=== PATIENT | male | born 1995 | race African-American/Black ===

== ENCOUNTER → 2017-02-04 | Outpatient (CLI) | payer BC ==
--- NOTE | ~2017-02-04 | CT92 ---
[facility] A Service [facility] RADIOLOGY TEXT RESULTS PATIENT: DOMINIC LOCO LOCATION: [facility] : [birth year] UNIT #: [id number] AGE: [address]: Daily Bedolla MD SEX: M ORDER DR: [id number] [address] [address] [id number] O MR#: [id number] Acc #: [id number] NAME: DOMINIC LOCO : 1995 SEX: M STUDY DATE/TIME: 02/04/2017 14:38 UNIT: [facility] ROOM: STUDY DESCRIPTION: CT Lower Ext Lt Wo Cont Attending Physician: Hortensia Bedolla M.D. Referring Physician: Hortensia Bedolla M.D. Ordering Physician: Hortensia Bedolla M.D. Primary Care Physician: No Primary Care Physician MEDICAL IMAGING REPORT This report is preliminary unless electronic signature is present. EXAM CT left ankle and hindfoot without contrast - with coronal and sagittal reconstruction 02/04/2017. COMPARISON STUDIES Left ankle and foot radiographs 12/23/2016 and 01/26/2017. 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 History sheet states injured ankle at home 1 year ago. Pain. No surgery. TECHNIQUE This CT exam was performed with one or more of the following radiation dose reduction techniques: automatic exposure control, adjustment of mA and/or kV according to patient size, and iterative reconstruction. FINDINGS The tibiotalar joint, ankle ligaments, and tendons are within normal limits. There is no fracture. There is a sizable partially fused lateral talar tubercle posteriorly simulating a large os trigonum. Correlate for any clinical significance (posterior impingement). The subtalar joints are normal. 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 The calcaneal cuboid joint is normal. 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 There is a broad dorsal bony prominence of the lateral navicular. [facility] A Service [facility] RADIOLOGY TEXT RESULTS PATIENT: DOMINIC LOCO LOCATION: [facility] : [birth year] UNIT #: [id number] AGE: [address]: Daily Bedolla MD SEX: M ORDER DR: Dorsal capsuloligamentous enthesophyte formation at the talonavicular joint is likely reactive to abnormal hind foot motion. The cubonavicular coalition measures 14 mm in transverse dimension. Tarsal - metatarsal alignment is normal. No osseous lesions or muscle atrophy is noted. Subcutaneous edema is noted of the medial and lateral ankle. IMPRESSION 1. 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 2. 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 3. Dorsal talonavicular enthesophyte formation/beaking, likely due to abnormal biomechanical stress. 4. There is no evidence of a subtalar or calcaneonavicular coalition. 5. Partially fused posterior lateral talar tubercle is enlarged and simulates an os trigonum. Correlate for posterior impingement. 6. Sizeable calcaneus secondarium (accessory ossicle). This lies along the anterior-superior process of the calcaneus. Dictated by... Tracie Brandt M.D. THIS IS AN ELECTRONICALLY VERIFIED REPORT Tracie Brandt M.D. at 02/06/2017 8:17 AM Stephen TD: 02/05/2017 12:50 JOB #: [id number] MEDICAL IMAGING REPORT Page 1 of 1
== END | disposition home or self-care (01) ==
LOC: CCAT 13:30 → SCT 13:30
DX: M25.572 Pain in left ankle and joints of left foot (principal); M21.962 Unspecified acquired deformity of left lower leg; M25.872 Other specified joint disorders, left ankle and foot
CPT/HCPCS: 73700